=== PATIENT | male | born 1955 | race Hispanic/Latino ===

== ENCOUNTER 2017-09-09 13:13 | Emergency (ER) | payer MEDICARE, MEDICAID ==
[2017-09-09 13:51] LABS: #Eosinphils 0.1 thou/uL (0.0-0.7); #Lymphocytes 2.8 thou/uL (1.20-3.40); #Monocytes 0.5 thou/uL (0.11-0.59); #Neutrophils 2.3 thou/uL (1.40-6.50); %Basophils 0.2 % (0.0-1.0); %Eosinophils 1.4 % (0.0-10.0); %Lymphocytes 49.8 % (21.0-51.0); %Monocytes 8.4 % (0.0-10.0); %Neutrophils 40.3 % (42.0-75.0); Hemoglobin 14.9 g/dL (14.0-18.0); Mean Corpuscular HGB CONC 34.3 g/dL (32.0-36.0); Mean Corpuscular Volume 93.3 fl (80.0-94.0); Mean Platelet Volume 6.7 fL (7.4-10.4); Platelet Count 252 thou/uL (130-400); RBC Distribution Width 12.5 % (11.5-14.5); Red Blood Cell (RBC) Count 4.64 mill/uL (4.70-6.10); White Blood Cell (WBC) Count 5.6 thou/uL (4.8-10.8)
[2017-09-09 13:58] LABS: PTT 30.4 SEC (22.9-36.1)
[2017-09-09 14:06] LABS: INR-International Normal Ratio 2.5; Prothrombin Time 27.6 SEC (12.0-14.7)
[2017-09-09 14:12] LABS: ALT (SGPT) 24 U/L (8-55); AST (SGOT) 18 U/L (5-34); Albumin 3.9 g/dL (3.4-4.8); Alkaline Phosphatase 92 U/L (40-150); Anion Gap 12 mmol/L (10-20); BUN (Urea Nitrogen) 12 mg/dL (8.4-25.7); Bilirubin, Total 0.3 mg/dL (0.2-1.2); Calc. Creatinine Clearance 0 mL/min (70-130); Calcium 9.1 mg/dL (7.8-10.44); Carbon Dioxide 23 mmol/L (23-31); Chloride 107 mmol/L (98-107); Estimated GFR-MDRD Greater than 90; Globulin 3.3 g/dL (2.4-3.5); Glucose 121 mg/dL (80-115); Potassium 4.1 mmol/L (3.5-5.1); Protein, Total 7.2 g/dL (5.8-8.1); Sodium 138 mmol/L (136-145)
[2017-09-09 14:17] LABS: Troponin I Less than 0.010 ng/mL (< 0.028)
[2017-09-09] MEDS ORDERED: Ondansetron HCl/PF 4 MG/2 ML Vial ONE (14:52)
--- NOTE | 2017-09-09 15:36 | CT ---
HEAD CT: Indication: Syncope. Comparison: 06-22-14 FINDINGS: Stable right AC distribution of encephalomalacia with an ex vacuo dilatation of the ventricular syste m. No intracranial hemorrhage, mass effect, or midline shift. No additional significant interval isaacs ge. IMPRESSION: 1. Remote right BA distribution of encephalomalacia. 2. No acute intracranial abnormality. POS: [facility]
== END 2017-09-09 15:20 | disposition home or self-care (01) ==
LOC: ERS 13:13
DX: E86.0 Dehydration (principal); I48.91 Unspecified atrial fibrillation; I10 Essential (primary) hypertension
CPT/HCPCS: 36415; 70450; 80053; 82553; 84484; 85025; 85610; 85730; 93005; 96361; 96374; J2405

== ENCOUNTER 2017-09-25 08:58 | Outpatient (CLI) | payer MEDICARE, MEDICAID ==
[2017-09-25 09:28] LABS: BUN (Urea Nitrogen) 11 mg/dL (8.4-25.7); Calc. Creatinine Clearance 0 mL/min (70-130); Estimated GFR-MDRD Greater than 90
--- NOTE | 2017-09-25 11:21 | CT ---
CT ANGIOGRAM OF CHEST: Date: 09/25/17 HISTORY: Coronary mapping for EP. COMPARISON: None. TECHNIQUE: Postcontrast chest CT performed in axial plane. Reformatted images submitted for interpretation. FINDINGS: Nonspecific, nonenlarged mediastinal lymph nodes. Heart size is within normal limits. No pericardial effusion. There is calcification of the mitral annulus, as well as minimal calcification of the aorti c valve. Limited evaluation of the aorta due to inadequate contrast opacification. No evidence of ane urysm. Reflux of contrast into the inferior vena cava and central hepatic vein likely due to right he art failure. Trachea and central bronchi are patent. Minimal atelectatic changes of the lung parenchyma. Nonspecif ic 3-5 mm nodules in the superior segment of the left lower lobe. There is adequate contrast opacification of the pulmonary arterial system to the level of the segment al arteries. No filling defect to imply thromboembolism. No lytic or blastic lesions of the osseous s tructures. IMPRESSION: Small nodules in the superior segment of the left lower lobe. Nonemergent chest CT is recommended to better assess the lung parenchyma. CODE T. POS: [facility]
[2017-09-25] MEDS ORDERED: Iopamidol 370 76% 100 ML VIAL ONE (13:57)
== END 2017-09-25 08:59 | disposition home or self-care (01) ==
LOC: CT 08:58
PROVIDERS: ATTEND Internal Medicine Cardiovascular Disease
DX: Z01.818 Encounter for other preprocedural examination (principal); Z01.812 Encounter for preprocedural laboratory examination; I48.91 Unspecified atrial fibrillation; R06.02 Shortness of breath; R91.8 Other nonspecific abnormal finding of lung field
CPT/HCPCS: 36415; 71275; 82565; 84520

== ENCOUNTER 2018-02-14 12:24 | Day surgery (SDC) | payer MEDICARE ==
[2018-02-14] MEDS ORDERED: PROPOFOL 20 ML ONE (13:44)
[2018-02-14 13:48] LABS: Hemoglobin 15.3 g/dL (14.0-18.0); Mean Corpuscular HGB CONC 34.7 g/dL (32.0-36.0); Mean Corpuscular Hemoglobin 30.9 pg (27.0-31.0); Mean Corpuscular Volume 89.1 fl (80.0-94.0); Mean Platelet Volume 7.1 fL (7.4-10.4); Platelet Count 187 thou/uL (130-400); RBC Distribution Width 12.7 % (11.5-14.5); Red Blood Cell (RBC) Count 4.94 mill/uL (4.70-6.10); White Blood Cell (WBC) Count 4.5 thou/uL (4.8-10.8)
[2018-02-14 13:54] LABS: INR-International Normal Ratio 2.7; Prothrombin Time 29.7 SEC (12.0-14.7)
[2018-02-14] MEDS ORDERED: PROPOFOL 200 MG/20 ML VIAL ONE (14:00)
[2018-02-14 14:11] LABS: Anion Gap 12 mmol/L (10-20); BUN (Urea Nitrogen) 15 mg/dL (8.4-25.7); Calc. Creatinine Clearance 0 mL/min (70-130); Carbon Dioxide 24 mmol/L (23-31); Chloride 108 mmol/L (98-107); Estimated GFR-MDRD Greater than 90; Glucose 103 mg/dL (80-115); Sodium 140 mmol/L (136-145)
--- NOTE | 2018-02-14 17:22 | OP ---
DATE OF SERVICE: 02/14/2018 CARDIOVERSION REPORT REASON FOR PROCEDURE: Mr. Khoury is a 62-year-old man with history of rheumatic heart disease, mitral stenosis, prior history of left atrial arrhythmias. He is presenting with recurrent left atypical flutter about 4 months post original ablation procedure in October of this year. He is currently on anticoagulation with Coumadin. DESCRIPTION OF PROCEDURE: The patient received propofol per Anesthesia specialist. After adequate level of sedation achieved, a synchronized 75 joule shockfollowed by a 150 joule shock did not completely convert him, but eventually 200 joule shock converted back to sinus rhythm. Frequent runs of PACs are still noted. In short time pt converted back to an atypical atrial flutter with variable AV conduction. Patient tolerated procedure well. CONCLUSION: Succesful cardivoersion, but early recurrence of AFL is seen. Will addantiarrhythmic agent: Flecainide ad possibe future cardioversion. Early office follow up. THELMA
--- NOTE | 2018-02-15 13:07 | EKG ---
Test Reason : POST CARDIOVERSION Blood Pressure : / mmHG Vent. Rate : 076 BPM Atrial Rate : 076 BPM P-R Int : 120 ms QRS Dur : 090 ms QT Int : 422 ms P-R-T Axes : 069 031 017 degrees QTc Int : 474 ms Normal sinus rhythm with sinus arrhythmia Short VA interval When compared with ECG of 14-FEB-2018 13:20, Sinus rhythm has replaced Atrial fibrillation Confirmed by KAITLIN CHONG ([id number]) on 02/15/2018 1:06:42 PM Referred By: [facility] Confirmed By:KAITLIN CHONG
--- NOTE | 2018-02-15 13:51 | HP ---
DATE OF SERVICE: 02/14/2018 SUBJECTIVE: Mr. Khoury is doing fair. He underwent his last ablation in 10/2017. He was doing good, but then more recently he had developed palpitations and also monitor was showing recurrent atrial f lutter. He is here for cardioversion. Respiratory system is unremarkable. PAST MEDICAL HISTORY: 1. History of persistent atrial flutter, status post left atrial flutter ablation by venous isolatio n procedure in 10/2017. 2. ____ atrial valve disease 280 from 10/2017 shows LVEF of 60%, moderate to severe MR, moderate aor tic regurgitation, mild tricuspid regurgitation, PFO. 3. Negative stress test in 12/2016, LVEF 59%. 4. Prior history of LV dysfunction at 40-45%, but improved on ANUPAMA in 10/2017. 5. Chronic anticoagulation with warfarin. ALLERGIES: None. MEDICATIONS AT HOME: Aspirin 81 daily, metoprolol 12.5 twice a day, Pravastatin 81 daily, Vantin 100 mg twice a day, warfarin 5 mg as directed. OBJECTIVE: VITAL SIGNS: Stable. Heart rates in the 90s, blood pressure 120/85. GENERAL: He is alert and oriented man in no apparent distress. NECK: Supple. Jugular veins are not distended. CHEST: Coarse without crackles. CARDIAC: Heart sounds are irregularly irregular. S1 is variable. No murmur or gallop. ABDOMEN: Benign. Bowel sounds positive. EXTREMITIES: No edema, clubbing or cyanosis. DATABASE: EKG shows an atypical atrial flutter. ASSESSMENT AND PLAN: Mr. Khoury is a pleasant 62-year-old man with prior history of atrial arrhythmia s and rheumatic heart disease. He had prior ablation in October, now has recurrence, here for cardi oversion. Risks and benefits of the procedure explained. His INR today is adequate at 2.7. We will consider putting him on antiarrhythmic agent post-procedur e.
== END 2018-02-14 15:31 | disposition home or self-care (01) ==
LOC: CCL 12:24
PROVIDERS: ATTEND Internal Medicine Cardiovascular Disease
DX: I48.4 Atypical atrial flutter (principal); Z79.01 Long term (current) use of anticoagulants; Z79.82 Long term (current) use of aspirin; Z79.899 Other long term (current) drug therapy
CPT/HCPCS: 80048; 85027; 85610; 85730; 92960; 93005; 93010; J2704

== ENCOUNTER 2018-12-13 15:17 | Emergency (ER) | payer MEDICARE, MEDICAID ==
[2018-12-13 15:39] LABS: #Eosinphils 0.1 thou/uL (0.0-0.7); #Lymphocytes 1.8 thou/uL (1.20-3.40); #Monocytes 0.3 thou/uL (0.11-0.59); #Neutrophils 2.1 thou/uL (1.40-6.50); %Basophils 0.7 % (0.0-1.0); %Eosinophils 2.1 % (0.0-10.0); %Lymphocytes 41.5 % (21.0-51.0); %Monocytes 7.2 % (0.0-10.0); %Neutrophils 48.5 % (42.0-75.0); Mean Corpuscular HGB CONC 33.7 g/dL (32.0-36.0); Mean Corpuscular Hemoglobin 30.7 pg (27.0-31.0); Mean Corpuscular Volume 91.1 fL (78.0-98.0); Mean Platelet Volume 6.5 fL (7.4-10.4); Platelet Count 202 thou/uL (130-400); RBC Distribution Width 12.7 % (11.5-14.5); Red Blood Cell (RBC) Count 4.88 mill/uL (4.70-6.10); White Blood Cell (WBC) Count 4.3 thou/uL (4.8-10.8)
[2018-12-13 16:05] LABS: ALT (SGPT) 35 U/L (8-55); AST (SGOT) 25 U/L (5-34); Albumin 4.3 g/dL (3.4-4.8); Alkaline Phosphatase 119 U/L (40-150); Anion Gap 12 mmol/L (10-20); BUN (Urea Nitrogen) 14 mg/dL (8.4-25.7); Bilirubin, Total 0.2 mg/dL (0.2-1.2); Calc. Creatinine Clearance 0 mL/min (70-130); Calcium 8.9 mg/dL (7.8-10.44); Carbon Dioxide 26 mmol/L (23-31); Chloride 105 mmol/L (98-107); Estimated GFR-MDRD Greater than 90; Globulin 3.1 g/dL (2.4-3.5); Glucose 94 mg/dL (80-115); Potassium 4.1 mmol/L (3.5-5.1); Protein, Total 7.4 g/dL (5.8-8.1); Sodium 139 mmol/L (136-145)
--- NOTE | 2018-12-13 17:29 | RAD ---
Chest 1 view HISTORY: Cough. Fall. COMPARISON: 06/30/2014 and 09/25/2017. FINDINGS: Cardiac silhouette and pulmonary vasculature are unremarkable. Subtle opacity at the right base is now present. No lobar consolidation or evidence of pneumothorax. awake overnight monitor leads overlie the chest. IMPRESSION: Subtle parenchymal opacity at the right base. Possible infiltrate versus atelectasis. Cli nical correlation regarding other signs and symptoms of right basilar pneumonitis is required.
[2018-12-13 17:38] LABS: PTT 38.1 SEC (22.9-36.1); Prothrombin Time 31.3 SEC (12.0-14.7)
== END 2018-12-13 18:20 | disposition home or self-care (01) ==
LOC: ERS 15:17
DX: J18.1 Lobar pneumonia, unspecified organism (principal); E78.5 Hyperlipidemia, unspecified; I48.91 Unspecified atrial fibrillation; Z79.899 Other long term (current) drug therapy; Z79.01 Long term (current) use of anticoagulants
CPT/HCPCS: 36415; 71045; 80053; 84443; 84484; 85025; 85610; 85730; 93005; 94760

== ENCOUNTER 2018-12-22 13:49 | Emergency (ER) | payer MEDICARE, MEDICAID ==
--- NOTE | 2018-12-22 14:25 | RAD ---
EXAM: CHEST ONE VIEW HISTORY: Weakness and dizziness COMPARISON: 12/13/2018 FINDINGS: The cardiac silhouette and pulmonary vasculature is within normal limits. The lungs are clear. The mak btle linear parenchymal density at the right lung base on prior study is not appreciated on this study and has resolved or was possibly related to superimposition of structures on the prior exam. Th e osseous structures are intact. IMPRESSION: No acute cardiopulmonary process.
[2018-12-22 14:28] LABS: #Eosinphils 0.1 thou/uL (0.0-0.7); #Lymphocytes 2.5 thou/uL (1.20-3.40); #Monocytes 0.6 thou/uL (0.11-0.59); #Neutrophils 2.2 thou/uL (1.40-6.50); %Basophils 0.6 % (0.0-1.0); %Eosinophils 1.4 % (0.0-10.0); %Monocytes 10.2 % (0.0-10.0); %Neutrophils 40.8 % (42.0-75.0); Hemoglobin 16.3 g/dL (14.0-18.0); Mean Corpuscular HGB CONC 35.7 g/dL (32.0-36.0); Mean Corpuscular Hemoglobin 31.6 pg (27.0-31.0); Mean Corpuscular Volume 88.6 fL (78.0-98.0); Mean Platelet Volume 7.1 fL (7.4-10.4); Platelet Count 225 thou/uL (130-400); RBC Distribution Width 12.5 % (11.5-14.5); Red Blood Cell (RBC) Count 5.14 mill/uL (4.70-6.10); White Blood Cell (WBC) Count 5.3 thou/uL (4.8-10.8)
[2018-12-22 15:44] LABS: Carbon Dioxide 20 mmol/L (23-31); Chloride 104 mmol/L (98-107); Potassium 4.6 mmol/L (3.5-5.1); Sodium 138 mmol/L (136-145)
[2018-12-22 15:46] LABS: Anion Gap 19 mmol/L (10-20); BUN (Urea Nitrogen) 12 mg/dL (8.4-25.7); Calc. Creatinine Clearance 0 mL/min (70-130); Estimated GFR-MDRD Greater than 90
[2018-12-22 15:47] LABS: Bilirubin, Total 0.2 mg/dL (0.2-1.2); Calcium 8.6 mg/dL (7.8-10.44); Globulin 2.2 g/dL (2.4-3.5); Glucose 90 mg/dL (80-115); Protein, Total 6.2 g/dL (5.8-8.1)
[2018-12-22 15:48] LABS: ALT (SGPT) 54 U/L (8-55); AST (SGOT) 46 U/L (5-34); Alkaline Phosphatase 145 U/L (40-150); CK (CPK) 114 U/L (30-200)
== END 2018-12-22 17:08 | disposition home or self-care (01) ==
LOC: ERS 13:49
DX: R42 Dizziness and giddiness (principal); E78.5 Hyperlipidemia, unspecified; I48.91 Unspecified atrial fibrillation; Z79.01 Long term (current) use of anticoagulants; Z79.82 Long term (current) use of aspirin; Z79.899 Other long term (current) drug therapy
CPT/HCPCS: 71045; 80053; 82550; 84484; 85025; 93005; 96360

== ENCOUNTER 2019-11-03 12:51 | Emergency (ER) | payer MEDICARE, MEDICAID ==
--- NOTE | 2019-11-03 13:54 | RAD ---
EXAM: Chest one view: HISTORY: Dizziness COMPARISON: 12/22/2018 FINDINGS: Stable exam. Heart size: Within normal limits. Lungs: Clear of acute process. No evidence for confluent pneumonia, pleural effusion, acute edema, or pneumothorax, or other signifi cant acute process. IMPRESSION: No significant acute intrathoracic disease.
[2019-11-03 14:43] LABS: Hemoglobin 14.7 g/dL (14.0-18.0); Mean Corpuscular HGB CONC 34.2 g/dL (32.0-36.0); Mean Corpuscular Hemoglobin 31.7 pg (27.0-31.0); Mean Corpuscular Volume 92.7 fL (78.0-98.0); Platelet Count 175 thou/uL (130-400); RBC Distribution Width 12.5 % (11.5-14.5); Red Blood Cell (RBC) Count 4.65 mill/uL (4.70-6.10); White Blood Cell (WBC) Count 4.4 thou/uL (4.8-10.8)
[2019-11-03] MEDS ORDERED: Meclizine HCl 25 MG TAB ONE (14:58)
[2019-11-03] MEDS ORDERED: Ondansetron ODT 4 MG TAB ONE (14:58)
[2019-11-03 15:00] LABS: Band 19 % (5-11); Eosinophils 1 % (0-10); Lymphocytes 36 % (21-51); MDiff Complete? YES; Monocytes 7 % (0-10); Neutrophil 23 % (42-75); Platelet Morphology Comment Appears Adequate; RBC Morphology Normal; Reactive Lymphocytes 14 % (0-10)
[2019-11-03 15:05] LABS: ALT (SGPT) 29 U/L (8-55); AST (SGOT) 23 U/L (5-34); Albumin 4.2 g/dL (3.4-4.8); Alkaline Phosphatase 105 U/L (40-110); Anion Gap 12 mmol/L (10-20); BUN (Urea Nitrogen) 11 mg/dL (8.4-25.7); Bilirubin, Total 0.2 mg/dL (0.2-1.2); CK (CPK) 62 U/L (30-200); Calc. Creatinine Clearance 0 mL/min (70-130); Calcium 8.8 mg/dL (7.8-10.44); Carbon Dioxide 27 mmol/L (23-31); Chloride 104 mmol/L (98-107); Estimated GFR-MDRD Greater than 90; Globulin 2.7 g/dL (2.4-3.5); Glucose 97 mg/dL (80-115); Potassium 4.5 mmol/L (3.5-5.1); Protein, Total 6.9 g/dL (5.8-8.1); Sodium 138 mmol/L (136-145)
--- NOTE | 2019-11-03 15:27 | CT ---
Head CT without contrast 11/03/2019: COMPARISON: 09/09/2017 HISTORY: Dizziness TECHNIQUE: Axial CT imaging at 5 mm intervals from vertex through skull base without contrast FINDINGS: Imaged paranasal sinuses and mastoid air cells are well-aerated. No displaced calvarial fra cture. No intracranial hemorrhage, midline shift, mass effect, or ventricular enlargement. Stable encephalomalacia noted within the right MCA territory consistent with remote infarction. IMPRESSION: Chronic findings as detailed above. No intracranial hemorrhage.
[2019-11-03] MEDS ORDERED: Lorazepam 2 MG/ML VIAL ONE (15:34)
[2019-11-03] MEDS ORDERED: Dexamethasone 10 MG/ML VIAL ONE (15:40)
== END 2019-11-03 16:19 | disposition home or self-care (01) ==
LOC: ERS 12:51
DX: R42 Dizziness and giddiness (principal); E78.5 Hyperlipidemia, unspecified; I48.91 Unspecified atrial fibrillation
CPT/HCPCS: 36415; 70450; 71045; 80053; 82550; 84484; 85025; 93005; 96361; 96374; 96375; J1100; J2060; J8597; Q0162

== ENCOUNTER 2020-07-24 21:06 | Emergency (ER) | payer MEDICARE, MEDICAID ==
[~2020-07-24 21:06] MED LIST: Iopamidol-370 76% 500 ML 1 ML ONE
[2020-07-24] MEDS ORDERED: Morphine 4 MG/ML VIAL ONE (21:43)
[2020-07-24] MEDS ORDERED: Ondansetron PF 4 MG/2 ML Vial ONE (21:43)
[2020-07-24 22:01] LABS: #Eosinphils 0.1 thou/uL (0.0-0.7); #Lymphocytes 2.2 thou/uL (1.20-3.40); #Monocytes 0.5 thou/uL (0.11-0.59); #Neutrophils 3.2 thou/uL (1.40-6.50); %Basophils 0.6 % (0.0-1.0); %Eosinophils 1.6 % (0.0-10.0); %Lymphocytes 36.3 % (21.0-51.0); %Monocytes 7.9 % (0.0-10.0); %Neutrophils 53.7 % (42.0-75.0); Mean Corpuscular HGB CONC 35.4 g/dL (32.0-36.0); Mean Corpuscular Volume 93.3 fL (78.0-98.0); Platelet Count 194 thou/uL (130-400); RBC Distribution Width 12.5 % (11.5-14.5); Red Blood Cell (RBC) Count 4.55 mill/uL (4.70-6.10)
[2020-07-24 22:25] LABS: ALT (SGPT) 18 U/L (8-55); AST (SGOT) 25 U/L (5-34); Albumin 4.2 g/dL (3.4-4.8); Alkaline Phosphatase 133 U/L (40-110); Anion Gap 14 mmol/L (10-20); BUN (Urea Nitrogen) 14 mg/dL (8.4-25.7); Bilirubin, Total Less than 0.2 mg/dL (0.2-1.2); Calc. Creatinine Clearance 0 mL/min (70-130); Calcium 8.8 mg/dL (7.8-10.44); Carbon Dioxide 26 mmol/L (23-31); Chloride 104 mmol/L (98-107); Estimated GFR-MDRD 90; Globulin 3.8 g/dL (2.4-3.5); Glucose 103 mg/dL (80-115); Lipase 31 U/L (8-78); Potassium 4.6 mmol/L (3.5-5.1); Sodium 139 mmol/L (136-145)
[2020-07-24 22:48] LABS: Bacteria/HPF None Seen HPF (None Seen); Bilirubin Negative (Negative); Blood, Urine 1+ (Negative); Clarity Clear (Clear); Glucose, Urine (Dipstick) Normal (Negative); Ketone, Urine Negative (Negative); Leukocyte Negative Leu/uL (Negative); Nitrite Negative (Negative); Protein, Urine (Dipstick) 10 mg/dL (Neg-Trace); Specific Gravity, Urine 1.027 (1.002-1.036); Squamous Epithelial 0-3 HPF (0-3); Urobilinogen Normal mg/dL (Less than 2); WBC/HPF 0-3 HPF (0-3); pH, Urine 5.5 (5.0-9.0)
--- NOTE | 2020-07-24 22:57 | CT ---
CT of the abdomen and pelvis: 07/24/2020 COMPARISON: None HISTORY: Right lower quadrant pain TECHNIQUE: Axial CT imaging at 5 mm intervals from the lung bases through the pubic symphysis with IV contrast. Coronal and sagittal reformatted imaging obtained. FINDINGS: There is calcification in the region of the mitral valve with dilation of the left atrium w hich may signify mitral stenosis. Mild linear density noted within the imaged lung bases. No free intraperitoneal air or fluid. The hepatic parenchyma is relatively hypodense suggesting steatosis. Th e gallbladder, spleen, pancreas, adrenal glands, and kidneys demonstrate no acute findings. There is an exophytic lesion emanating from the lateral aspect of the mid pole left kidney measuring 2.3 cm with Hounsfield units of 40-45, not consistent with a simple cyst. There is a fat-containing inguinal hernia measuring 3.9 cm in transverse dimension and C5-6 centimete rs in craniocaudal dimension. Limited assessment of the bowel without oral contrast media demonstrates no evidence for inflammatory change or obstruction. The vascular structures appear patent. No abdominal or pelvic lymphadenopathy. No acute osseous abnor mality. IMPRESSION: Fat-containing right inguinal hernia. No evidence for free intraperitoneal air or bowel o bstruction. Question mitral stenosis. Exophytic midpole lateral left renal lesion for which follow-up CT advised with and without contrast as this could represent a complex cyst or solid mass. CODE T
== END 2020-07-24 23:33 | disposition home or self-care (01) ==
LOC: ERS 21:06
DX: K40.90 Unilateral inguinal hernia, without obstruction or gangrene, not specified as recurrent (principal); E78.5 Hyperlipidemia, unspecified; I48.91 Unspecified atrial fibrillation
CPT/HCPCS: 36415; 74177; 80053; 81003; 81015; 83605; 83690; 84484; 85025; 93005; 96374; 96375; J2270; J2405; Q9967

== ENCOUNTER 2020-08-19 07:39 | Outpatient (CLI) | payer MEDICARE, MEDICAID ==
[2020-08-19 12:51] LABS: #Eosinphils 0.1 10x3/uL (0.0-0.5); #Monocytes 0.4 10x3/uL (0.0-1.1); #Neutrophils 2.7 10x3/uL (1.5-8.4); %Basophils 0.4 % (0.0-2.0); %Eosinophils 2.6 % (0.0-6.0); %Lymphocytes 39.3 % (18.0-47.0); %Monocytes 7.6 % (0.0-10.0); %Neutrophils 49.9 % (40.0-75.0); Hemoglobin 14.2 g/dL (14.0-18.0); Mean Corpuscular HGB CONC 33.1 G/DL (32.0-36.0); Mean Corpuscular Hemoglobin 30.6 PG (27.0-33.0); Mean Corpuscular Volume 92.5 fl (80.0-100.0); Mean Platelet Volume 9.7 fl (7.4-10.4); Platelet Count 209 10x3/uL (130-400); RBC Distribution Width 12.9 % (11.5-14.5); Red Blood Cell (RBC) Count 4.64 10x6/uL (4.40-5.80); White Blood Cell (WBC) Count 5.4 10x3/uL (4.5-11.0)
[2020-08-19 13:28] LABS: Anion Gap 11 mmol/L (10-20); BUN (Urea Nitrogen) 13 mg/dL (8.4-25.7); Calc. Creatinine Clearance 0 mL/min (70-130); Calcium 8.9 mg/dL (7.8-10.44); Carbon Dioxide 28 mmol/L (23-31); Chloride 103 mmol/L (98-107); Glucose 112 mg/dL (80-115); Potassium 4.2 mmol/L (3.5-5.1); Sodium 138 mmol/L (136-145)
[2020-08-19 23:46] LABS: SARS-CoV-2 MS2 Positive; SARS-CoV-2 N Gene Negative; SARS-CoV-2 S Gene Negative; SARS-CoV-2 by NAA Not Detected (NotDetected); SARS-CoV-2 orf1ab Negative
== END 2020-08-19 07:40 | disposition home or self-care (01) ==
LOC: LABBT 07:39
PROVIDERS: ATTEND Specialist
DX: Z01.818 Encounter for other preprocedural examination (principal); K40.90 Unilateral inguinal hernia, without obstruction or gangrene, not specified as recurrent; Z20.828 Contact with and (suspected) exposure to other viral communicable diseases
CPT/HCPCS: 80048; 85025; U0003; 87635; 93005; 93010

== ENCOUNTER 2020-11-18 10:45 | Outpatient (CLI) | payer MEDICARE, MEDICAID | END 2020-11-18 10:46 | disposition home or self-care (01) | LOC: LABBT 10:45 | PROVIDERS: ATTEND Specialist | DX: Z01.818 Encounter for other preprocedural examination (principal); K40.90 Unilateral inguinal hernia, without obstruction or gangrene, not specified as recurrent; Z20.822 Contact with and (suspected) exposure to COVID-19 | CPT/HCPCS: 80048; 85025; 93005; U0003; U0005; 87635; 93010 ==

== ENCOUNTER 2020-11-23 07:22 | Day surgery (SDC) | payer MEDICARE, MEDICAID ==
[2020-11-23] MEDS ORDERED: Acetaminophen 500 MG TAB ONE (08:25)
[2020-11-23] MEDS ORDERED: Ketorolac Tromethamine 30 MG/ML VIAL ONE (08:25)
[2020-11-23] MEDS ORDERED: Bupivacaine 0.25% HCL 30 ML VIAL ONE (08:50)
[2020-11-23] MEDS ORDERED: Lidocaine 1% w/Epinephrine 1:100K 20 ML VIAL ONE (08:50)
[2020-11-23] MEDS ORDERED: Dexmedetomidine 200 MCG/2 ML VIAL ONE (10:19)
[2020-11-23] MEDS ORDERED: Fentanyl 100 MCG/2 ML VIAL ONE (10:19)
[2020-11-23] MEDS ORDERED: Rocuronium Bromide 10 MG/ML (10ML VIAL) ONE (10:44)
[2020-11-23] MEDS ORDERED: Lidocaine 1% PF 5 ML VIAL ONE (10:44)
[2020-11-23] MEDS ORDERED: Dexamethasone 20 MG/5 ML VIAL ONE (10:44)
[2020-11-23] MEDS ORDERED: ePHEDrine 50 MG/ML VIAL ONE (10:44)
[2020-11-23] MEDS ORDERED: PROPOFOL 200 MG/20 ML VIAL ONE (10:44)
[2020-11-23] MEDS ORDERED: Ondansetron PF 4 MG/2 ML Vial ONE (10:44)
== END 2020-11-23 13:45 | disposition home or self-care (01) ==
LOC: SDC 07:22
PROVIDERS: ATTEND Specialist
PROC: 0YU54JZ Supplement Right Inguinal Region with Synthetic Substitute, Percutaneous Endoscopic Approach (ICD-10-PCS; principal; 2020-11-23)
DX: K40.90 Unilateral inguinal hernia, without obstruction or gangrene, not specified as recurrent (principal); E78.5 Hyperlipidemia, unspecified; G43.909 Migraine, unspecified, not intractable, without status migrainosus; I51.9 Heart disease, unspecified; I48.91 Unspecified atrial fibrillation; Z86.73 Personal history of transient ischemic attack (TIA), and cerebral infarction without residual deficits; Z79.01 Long term (current) use of anticoagulants; Z79.82 Long term (current) use of aspirin; Z79.899 Other long term (current) drug therapy
CPT/HCPCS: 49650; C1781; J0690; J1100; J1885; J2405; J2704; J3010; J3490; S0020